=== PATIENT | female | born 1970 | race Hispanic/Latino ===

== ENCOUNTER 2019-04-09 19:23 | Emergency (ER) | payer OTHER | END 2019-04-09 20:04 | disposition home or self-care (01) | LOC: EDH 19:23 | DX: G44.209 Tension-type headache, unspecified, not intractable (principal); Z98.51 Tubal ligation status ==

== ENCOUNTER 2023-11-24 18:06 | Emergency (ER) | payer OTHER ==
[~2023-11-24] VITALS: Ht 154.9 cm; Wt 81.6 kg
[2023-11-24 18:43] VITALS: BP 169/81; PULSE 75; RESP 18; O2SAT 96
== END 2023-11-24 23:43 | disposition left against medical advice (07) ==
LOC: EDH 18:06
DX: M79.674 Pain in right toe(s) (principal); M79.675 Pain in left toe(s); Z53.21 Procedure and treatment not carried out due to patient leaving prior to being seen by health care provider
CPT/HCPCS: 99281